=== PATIENT | female | born 1980 | race Caucasian/White ===

== ENCOUNTER → 2020-10-02 | Outpatient (CLI) | payer OTHER ==
--- NOTE | 2020-10-02 15:33 | RAD ---
PROCEDURE: US BREAST LT, MG DIAGNOSTIC BILAT HISTORY: The patient is 39 years old and is seen for Reason: LT BREAST LUMP / Spl. Instructions: / H istory: . COMPARISON: None. TECHNIQUE: CC and MLO views of both breasts were obtained. Images were processed by the [employer] computer-aided detection system. Left breast targeted ultrasound was also performed. DENSITY: The breast parenchyma is heterogeneously dense. This may lower the sensitivity of mammograph y. FINDINGS: Left breast mammogram lobulated left breast mass medially retroareolar measures 1.3 x 1.0 cm. No susp icious macrocalcification or architectural distortion. Left breast ultrasound: Solid hypoechoic left breast mass with macro lobulations measures 1.3 x 1.4 x 0.6 cm corresponding with patient's abnormality. Right breast mammogram no suspicious microcatheter location, mass or architectural distortion. IMPRESSION: 1. Solid hypoechoic left breast mass, most likely fibroadenoma. Recommend 6 month ultrasound follow- up. Recommend annual screening mammograms per [employer] guidelines. She will be due in one year. BI-RADS category 3 Probably benign Our clinic nurse has been instructed to assist with communicating findings and recommendations to the patient's referring physician and in scheduling follow-up. Patient entered into a reminder system for annual screening mammogram. Electronically signed by: Tien Sauceda DO (10/02/2020 3:31 PM) [id number]
== END ==
LOC: MAMMO 13:50
PROVIDERS: ATTEND Physician Assistant Medical
DX: N63.20 Unspecified lump in the left breast, unspecified quadrant (principal)
CPT/HCPCS: 76641; 77066

== ENCOUNTER → 2021-05-20 | Outpatient (CLI) | payer OTHER ==
--- NOTE | 2021-05-20 13:04 | RAD ---
EXAMINATION: US DPLX VENOUS EXTREMITY LOWER LT INDICATION: Reason: PAIN OF LEFT CALF / Spl. Instructions: / History: COMPARISONS: None TECHNIQUE: Grayscale, color and spectral Doppler evaluation of the left lower extremity deep venous s ystem(s) was performed. FINDINGS: left common femoral, femoral and popliteal veins are normally compressible and demonstrate normally d irected and appropriately phasic flow with augmentation. Normal flow is present within the saphenofemoral junctions and deep femoral veins in the proximal thi ghs and the posterior tibial and peroneal veins in the proximal calves. IMPRESSION: No evidence of deep venous thrombosis in the left lower extremity. Electronically signed by: Abdoulaye Mahajan DO (05/20/2021 1:02 PM) [facility]
== END ==
LOC: US 12:19
PROVIDERS: ATTEND Nurse Practitioner Family
DX: M79.662 Pain in left lower leg (principal)
CPT/HCPCS: 93971